=== PATIENT | male | born 2000 | race Caucasian/White ===

== ENCOUNTER 2021-05-20 15:56 | Observation (INO) | payer SELFPAY ==
[~2021-05-20] VITALS: Ht 188 cm; Wt 68.0 kg
[2021-05-20] MEDS ORDERED: ONDANSETRON 4 MG/2 ML (SDV) Z0FRAN ONE (16:09)
[2021-05-20] MEDS ORDERED: LACTATED RINGERS 1,000 ML IV ONE (16:10)
[2021-05-20] MEDS ORDERED: fentaNYL INJ 100 MCG/2 ML AMP ONE (16:10)
[2021-05-20] MEDS: LACTATED RINGERS 1,000 ML IV SCH ×3 (16:12→21:31)
--- NOTE | 2021-05-20 16:13 | ED Abdominal Pain ---
General Chief Complaint: Abdominal/GI Problems Stated Complaint: ABD PAIN Source of Information: Patient Exam Limitations: No Limitations History of Present Illness Date Seen by Provider: May 20, 2021 Time Seen by Provider: 16:10 Initial Comments To ER with diffuse abdominal pain that started today around 1 PM. He works for [employer]. Lives in [place], pulled over on the way home and try to sleep in his car and then got out and sat in the ditch. Welfare check was called on him by a passerby. States that he takes no medications. Denies alcohol or drug use. Does not have a primary care provider. He has had several episodes of diarrhea this morning as well as vomiting. Timing/Duration: 4-6 Hours Severity/Quality: Moderate Radiation: No Radiation Activities at Onset: None Associated Symptoms: Nausea/Vomiting Allergies and Home Medications Allergies Coded Allergies: No Known Drug Allergies (Unverified , 05/20/21) Patient Home Medication List Home Medication List Reviewed: Yes Review of Systems Review of Systems Constitutional: see HPI EENTM: No Symptoms Reported Respiratory: No Symptoms Reported Cardiovascular: No Symptoms Reported Gastrointestinal: See HPI, Abdominal Pain, Diarrhea, Nausea, Vomiting Genitourinary: No Symptoms Reported Musculoskeletal: no symptoms reported Skin: no symptoms reported Psychiatric/Neurological: No Symptoms Reported Endocrine: No Symptoms Reported Hematologic/Lymphatic: No Symptoms Reported Past Uvhnkbs-Hpirvl-Yiwvau Hx Patient Social History Tobacco Use?: No Use of E-Cig and/or Vaping dev: No Substance use?: No Alcohol Use?: No Immunizations Up To Date First/Initial COVID19 Vaccinat: none Second COVID19 Vaccination Thomas: none Third COVID19 Vaccination Date: none COVID19 Vaccine High School Coordinator: none Physical Exam Vital Signs Vital Signs - First Documented 05/20/21 15:56 Temp 36.8 Pulse 87 Resp 20 B/P (MAP) 116/70 (85) Pulse Ox 99 O2 Delivery Room Air Capillary Refill : Height/Weight/BMI Height: '" Weight: lbs. oz. kg; BMI Method: General Appearance: thin, other (Very anxious appearing, shaking. Drinking water excessively despite our request that he not do that.) HEENT: PERRL/EOMI, normal ENT inspection Neck: non-tender, full range of motion Respiratory: normal breath sounds, no respiratory distress, no accessory muscle use Gastrointestinal: normal bowel sounds, soft, tenderness Progress/Results/Core Measures Results/Orders Lab Results Laboratory Tests Test 05/20/21 16:08 05/20/21 18:20 Range/Units White Blood Count 21.2 H 4.3-11.0 10^3/uL Red Blood Count 5.42 4.30-5.52 10^6/uL Hemoglobin 17.4 13.3-17.7 g/dL Hematocrit 50 40-54 % Mean Corpuscular Volume 92 80-99 fL Mean Corpuscular Hemoglobin 32 25-34 pg Mean Corpuscular Hemoglobin Concent 35 32-36 g/dL Red Cell Distribution Width 11.5 10.0-14.5 % Platelet Count 267 130-400 10^3/uL Mean Platelet Volume 9.8 9.0-12.2 fL Immature Granulocyte % (Auto) 1 % Neutrophils (%) (Auto) 87 H 42-75 % Lymphocytes (%) (Auto) 4 L 12-44 % Monocytes (%) (Auto) 8 0-12 % Eosinophils (%) (Auto) 0 0-10 % Basophils (%) (Auto) 0 0-10 % Neutrophils # (Auto) 18.5 H 1.8-7.8 10^3/uL Lymphocytes # (Auto) 0.8 L 1.0-4.0 10^3/uL Monocytes # (Auto) 1.7 H 0.0-1.0 10^3/uL Eosinophils # (Auto) 0.1 0.0-0.3 10^3/uL Basophils # (Auto) 0.1 0.0-0.1 10^3/uL Immature Granulocyte # (Auto) 0.1 0.0-0.1 10^3/uL Neutrophils % (Manual) 86 % Lymphocytes % (Manual) 3 % Monocytes % (Manual) 11 % Blood Morphology Comment NORMAL Sodium Level 138 135-145 MMOL/L Potassium Level 4.8 3.6-5.0 MMOL/L Chloride Level 104 98-107 MMOL/L Carbon Dioxide Level 21 21-32 MMOL/L Anion Gap 13 5-14 MMOL/L Blood Urea Nitrogen 17 7-18 MG/DL Creatinine 1.03 0.60-1.30 MG/DL Estimat Glomerular Filtration Rate 106 BUN/Creatinine Ratio 17 Glucose Level 141 H 70-105 MG/DL Calcium Level 10.5 H 8.5-10.1 MG/DL Corrected Calcium 8.5-10.1 MG/DL Total Bilirubin 1.2 H 0.1-1.0 MG/DL Aspartate Amino Transf (AST/SGOT) 52 H 5-34 U/L Alanine Aminotransferase (ALT/SGPT) 42 0-55 U/L Alkaline Phosphatase 84 40-136 U/L Total Protein 8.5 H 6.4-8.2 GM/DL Albumin 4.9 H 3.2-4.5 GM/DL Lipase 55 8-78 U/L Serum Alcohol < 10 <10 MG/DL Urine Color YELLOW Urine Clarity CLOUDY Urine pH 6.0 5-9 Urine Specific [place] 1.020 1.016-1.022 Urine Protein 1+ H NEGATIVE Urine Glucose (UA) NEGATIVE NEGATIVE Urine Ketones NEGATIVE NEGATIVE Urine Nitrite POSITIVE H NEGATIVE Urine Bilirubin NEGATIVE NEGATIVE Urine Urobilinogen 1.0 < = 1.0 MG/DL Urine Leukocyte Esterase 2+ H NEGATIVE Urine RBC (Auto) 3+ H NEGATIVE Urine RBC 25-50 H /HPF Urine WBC >100 H /HPF Urine Crystals NONE /LPF Urine Bacteria MODERATE H /HPF Urine Casts NONE /LPF Urine Mucus NEGATIVE /LPF Urine Culture Indicated YES Urine Opiates Screen NEGATIVE NEGATIVE Urine Oxycodone Screen NEGATIVE NEGATIVE Urine Methadone Screen NEGATIVE NEGATIVE Urine Propoxyphene Screen NEGATIVE NEGATIVE Urine Barbiturates Screen NEGATIVE NEGATIVE Ur Tricyclic Antidepressants Screen NEGATIVE NEGATIVE Urine Phencyclidine Screen NEGATIVE NEGATIVE Urine Amphetamines Screen NEGATIVE NEGATIVE Urine Methamphetamines Screen NEGATIVE NEGATIVE Urine Benzodiazepines Screen NEGATIVE NEGATIVE Urine Cocaine Screen NEGATIVE NEGATIVE Urine Cannabinoids Screen NEGATIVE NEGATIVE My Orders Orders - STEVEN HOWARD APRN Ua Culture If Indicated (05/20/21 15:59) Drug Screen Stat (Urine) (05/20/21 15:59) Cbc With Automated Diff (05/20/21 15:59) Comprehensive Metabolic Panel (05/20/21 15:59) Ed Iv/Invasive Line Start (05/20/21 15:59) Lipase (05/20/21 15:59) Alcohol (05/20/21 15:59) Lactated Ringers (Lr 1000 Ml Iv Solution (05/20/21 16:15) Fentanyl Inj (Sublimaze Injection) (05/20/21 16:15) Ondansetron Injection (Zofran Injectio (05/20/21 16:15) Ondansetron Injection (Zofran Injectio (05/20/21 16:09) Lactated Ringers (Lr 1000 Ml Iv Solution (05/20/21 16:10) Fentanyl Inj (Sublimaze Injection) (05/20/21 16:10) Lorazepam Injection (Ativan Injection) (05/20/21 16:15) Manual Differential (05/20/21 16:08) Ct Abdomen/Pelvis W (05/20/21 16:25) Iohexol Injection (Omnipaque 350 Mg/Ml 1 (05/20/21 16:45) Received Contrast (Hold Metformin- Contr (05/20/21 16:45) Ns (Ivpb) (Sodium Chloride 0.9% Ivpb Bag (05/20/21 16:45) Lactated Ringers (Lr 1000 Ml Iv Solution (05/20/21 17:15) Promethazine Injection (Phenergan Injec (05/20/21 18:30) Urine Culture (05/20/21 18:20) Ceftriaxone 1 Gm Pre-Mix (Rocephin 1 Gm (05/20/21 19:15) Blood Culture (05/20/21 19:08) Lactic Acid Analyzer (05/20/21 19:08) Medications Given in ED Current Medications Medications Dose Ordered Sig/Nusrat Route Start Time Stop Time Status Last Admin Dose Admin Fentanyl Citrate 50 mcg ONCE ONCE IVP 05/20/21 16:15 05/20/21 16:16 DC 05/20/21 16:12 50 MCG Iohexol 100 ml ONCE ONCE IV 05/20/21 16:45 05/20/21 16:46 DC 05/20/21 16:41 100 ML Ondansetron HCl 8 mg ONCE ONCE IVP 05/20/21 16:15 05/20/21 16:16 DC 05/20/21 16:12 8 MG Promethazine HCl 12.5 mg ONCE ONCE IVP 05/20/21 18:30 05/20/21 18:31 DC 05/20/21 18:39 12.5 MG Sodium Chloride 100 ml ONCE ONCE IV 05/20/21 16:45 05/20/21 16:46 DC 05/20/21 16:42 80 ML Vital Signs/I&O 05/20/21 15:56 Temp 36.8 Pulse 87 Resp 20 B/P (MAP) 116/70 (85) Pulse Ox 99 O2 Delivery Room Air Departure Communication (Admissions) NAME: KYLE BLACK [facility] REC#: [id number] PT STATUS: REG ER : 2000 PHYSICIAN: STEVEN HOWARD APRN ADMIT DATE: 05/20/21/ER Draft Date of Exam:05/20/21 CT ABDOMEN/PELVIS W EXAMINATION: CT abdomen and pelvis with intravenous contrast. TECHNIQUE: Multiple contiguous axial images were obtained through the abdomen and pelvis after the uneventful administration of intravenous contrast. All CT scans use one or more of the following dose optimizing techniques: automated exposure control, MA and/or KvP adjustment based on patient size and exam type or iterative reconstruction. HISTORY: abd pain COMPARISON: None available. FINDINGS: Lung bases: The lung bases are clear. Solid organs: The liver is normal without focal lesion. The gallbladder is normal. There is no biliary ductal dilation. Pancreas is normal. Spleen is normal. Adrenal glands are normal. The kidneys are normal without hydronephrosis. Bowel: The stomach and small bowel are normal without obstruction. The colon and appendix are normal. Fluid is seen within the colon which can be seen with diarrheal state. Peritoneum: There is no intraperitoneal free fluid or free air. No suspicious lymphadenopathy. Vasculature: Normal without aneurysm. Musculoskeletal: No suspicious osseous lesion or compression fracture. Pelvis: The prostate gland is normal. The urinary bladder is normal. IMPRESSION: 1. No acute abnormality in the abdomen or pelvis. 2. Fluid is seen throughout the colon which can be seen with diarrheal state. Dictated on workstation # [id number] Dict: 05/20/21 1654 Trans: 05/20/21 1700 [id number] [id number] Interpreted by: MARY JANE DYER DO Electronically signed by: Impression Primary Impression: Acute gastroenteritis Additional Impression: Urinary tract infection Disposition: HOME, SELF-CARE Condition: Stable Admissions Decision to Admit Reason: Admit from ER (General) Decision to Admit/Date: May 20, 2021 Time/Decision to Admit Time: 19:17 Departure-Patient Inst. Referrals: UNKNOWN (PCP/Family) Primary Care Physician STEVEN HOWARD APRN May 20, 2021 16:13
[2021-05-20] MEDS ORDERED: ONDANSETRON 4 MG/2 ML (SDV) Z0FRAN IVP ONE (16:15)
[2021-05-20] MEDS ORDERED: LORazepam INJ 2 MG/ML (ATIVAN) VIAL IVP ONE (16:15)
[2021-05-20] MEDS ORDERED: fentaNYL INJ 100 MCG/2 ML AMP IVP ONE (16:15)
[2021-05-20 16:18] LABS: BASOPHILS # (AUTO) 0.1 10^3/uL (0.0-0.1); BASOPHILS % (AUTO) 0 % (0-10); EOSINOPHILS # (AUTO) 0.1 10^3/uL (0.0-0.3); EOSINOPHILS % (AUTO) 0 % (0-10); HEMATOCRIT 50 % (40-54); HEMOGLOBIN 17.4 g/dL (13.3-17.7); LYMPHOCYTES # (AUTO) 0.8 10^3/uL (1.0-4.0); LYMPHOCYTES % (AUTO) 4 % (12-44); MEAN CORPUSCULAR HEMOGLOBIN 32 pg (25-34); MEAN CORPUSCULAR HGB CONC 35 g/dL (32-36); MEAN CORPUSCULAR VOLUME 92 fL (80-99); MEAN PLATELET VOLUME 9.8 fL (9.0-12.2); MONOCYTES # (AUTO) 1.7 10^3/uL (0.0-1.0); MONOCYTES % (AUTO) 8 % (0-12); NEUTROPHILS # (AUTO) 18.5 10^3/uL (1.8-7.8); NEUTROPHILS % (AUTO) 87 % (42-75); PLATELET COUNT 267 10^3/uL (130-400); WHITE BLOOD COUNT 21.2 10^3/uL (4.3-11.0)
[2021-05-20 16:29] LABS: ALBUMIN 4.9 GM/DL (3.2-4.5); CHLORIDE 104 MMOL/L (98-107); POTASSIUM 4.8 MMOL/L (3.6-5.0); SODIUM 138 MMOL/L (135-145)
[2021-05-20 16:30] LABS: CALCIUM 10.5 MG/DL (8.5-10.1)
[2021-05-20 16:32] LABS: GLUCOSE 141 MG/DL (70-105); TOTAL PROTEIN 8.5 GM/DL (6.4-8.2)
[2021-05-20 16:33] LABS: BILIRUBIN,TOTAL 1.2 MG/DL (0.1-1.0); CARBON DIOXIDE 21 MMOL/L (21-32)
[2021-05-20 16:35] LABS: ALKALINE PHOSPHATASE 84 U/L (40-136)
[2021-05-20 16:36] LABS: CREATININE SERUM 1.03 MG/DL (0.60-1.30); GFR ESTIMATED 106
[2021-05-20 16:37] LABS: BUN/CREATININE RATIO 17
[2021-05-20 16:38] LABS: ALANINE AMINOTRANSFERASE 42 U/L (0-55)
[2021-05-20 16:39] LABS: LIPASE 55 U/L (8-78)
[2021-05-20] MEDS ORDERED: NS 100 ML (IVPB) BAG IV ONE (16:45)
[2021-05-20] MEDS ORDERED: IOHEXOL 350 MG/ML 100 ML (OMNIPAQUE 350) VIAL IV ONE (16:45)
[2021-05-20] MEDS ORDERED: HOLD METFORMIN - RECEIVED CONTRAST 20 ML VIAL IV SCH (16:45)
--- NOTE | 2021-05-20 17:01 | Diagnostic Imaging Report ---
EXAMINATION: CT abdomen and pelvis with intravenous contrast. TECHNIQUE: Multiple contiguous axial images were obtained through the abdomen and pelvis after the uneventful administration of intravenous contrast. All CT scans use one or more of the following dose optimizing techniques: automated exposure control, MA and/or KvP adjustment based on patient size and exam type or iterative reconstruction. HISTORY: abd pain COMPARISON: None available. FINDINGS: Lung bases: The lung bases are clear. Solid organs: The liver is normal without focal lesion. The gallbladder is normal. There is no biliary ductal dilation. Pancreas is normal. Spleen is normal. Adrenal glands are normal. The kidneys are normal without hydronephrosis. Bowel: The stomach and small bowel are normal without obstruction. The colon and appendix are normal. Fluid is seen within the colon which can be seen with diarrheal state. Peritoneum: There is no intraperitoneal free fluid or free air. No suspicious lymphadenopathy. Vasculature: Normal without aneurysm. Musculoskeletal: No suspicious osseous lesion or compression fracture. Pelvis: The prostate gland is normal. The urinary bladder is normal. IMPRESSION: 1. No acute abnormality in the abdomen or pelvis. 2. Fluid is seen throughout the colon which can be seen with diarrheal state. Dictated by: Dictated on workstation # [id number]
[2021-05-20] MEDS ORDERED: LACTATED RINGERS 1,000 ML IV SCH (17:15)
[2021-05-20 17:17] LABS: LYMPHOCYTES % (MANUAL) 3 %; MONOCYTES % (MANUAL) 11 %; NEUTROPHILS % (MANUAL) 86 %; RBC MORPH NORMAL
[2021-05-20] MEDS ORDERED: PROMETHAZINE INJ 25 MG/ML (PHENERGAN) AMP IVP ONE (18:30)
[2021-05-20 18:34] LABS: BILIRUBIN,URINE NEGATIVE (NEGATIVE); CLARITY,URINE CLOUDY; COLOR,URINE YELLOW; GLUCOSE, URINE (UA) NEGATIVE (NEGATIVE); KETONES,URINE NEGATIVE (NEGATIVE); LEUKOCYTE ESTERASE ,URINE 2+ (NEGATIVE); NITRITE,URINE POSITIVE (NEGATIVE); PROTEIN,URINE 1+ (NEGATIVE)
[2021-05-20 19:02] LABS: RBC,URINE 25-50 /HPF; WBC,URINE >100 /HPF
[2021-05-20 19:03] LABS: AMPHETAMINE SCREEN, URINE NEGATIVE (NEGATIVE); BACTERIA,URINE MODERATE /HPF; BARBITURATE SCREEN URINE NEGATIVE (NEGATIVE); BENZODIAZEPINES SCREEN URINE NEGATIVE (NEGATIVE); CANNABINOID SCREEN, URINE NEGATIVE (NEGATIVE); COCAINE SCREEN URINE NEGATIVE (NEGATIVE); METHADONE STAT NEGATIVE (NEGATIVE); METHAMPHETAMINE SCREEN URINE S NEGATIVE (NEGATIVE); OPIATE SCREEN URINE NEGATIVE (NEGATIVE); OXYCODONE STAT NEGATIVE (NEGATIVE); PROPOXYPHENE STAT NEGATIVE (NEGATIVE); TRICYCLIC ANTIDEPRESSANTS SCRE NEGATIVE (NEGATIVE)
[2021-05-20] MEDS ORDERED: cefTRIAXone 1 GM PRE-MIX 50 ML IV ONE ×2 (19:15→19:30)
[2021-05-20] MEDS ORDERED: ACETAMINOPHEN 500 MG TAB (TYLENOL) PO PRN (20:45)
[2021-05-20 21:02] VITALS: BP 113/61
[2021-05-20] MEDS ORDERED: ACETAMINOPHEN 500 MG TAB (TYLENOL) ONE (21:08)
[2021-05-20] MEDS ORDERED: PROMETHAZINE INJ 25 MG/ML (PHENERGAN) AMP IVP PRN (21:30)
[2021-05-20] MEDS ORDERED: ONDANSETRON 4 MG/2 ML (SDV) Z0FRAN IV PRN (21:30)
[2021-05-21] VITALS: BP 97/51
[2021-05-21 04:00] VITALS: BP 125/63
[2021-05-21] MEDS: LACTATED RINGERS 1,000 ML IV SCH ×2 (05:11→13:30)
[2021-05-21 05:46] LABS: BASOPHILS % (AUTO) 0 % (0-10); EOSINOPHILS # (AUTO) 0.1 10^3/uL (0.0-0.3); EOSINOPHILS % (AUTO) 1 % (0-10); HEMATOCRIT 45 % (40-54); HEMOGLOBIN 15.5 g/dL (13.3-17.7); LYMPHOCYTES # (AUTO) 0.8 10^3/uL (1.0-4.0); LYMPHOCYTES % (AUTO) 8 % (12-44); MEAN CORPUSCULAR HEMOGLOBIN 32 pg (25-34); MEAN CORPUSCULAR HGB CONC 34 g/dL (32-36); MEAN CORPUSCULAR VOLUME 92 fL (80-99); MONOCYTES # (AUTO) 0.7 10^3/uL (0.0-1.0); MONOCYTES % (AUTO) 7 % (0-12); NEUTROPHILS # (AUTO) 8.7 10^3/uL (1.8-7.8); NEUTROPHILS % (AUTO) 84 % (42-75); PLATELET COUNT 217 10^3/uL (130-400); WHITE BLOOD COUNT 10.3 10^3/uL (4.3-11.0)
[2021-05-21 05:59] LABS: POTASSIUM 4.2 MMOL/L (3.6-5.0)
[2021-05-21 06:00] LABS: CALCIUM 9.4 MG/DL (8.5-10.1)
[2021-05-21 06:05] LABS: CREATININE SERUM 0.97 MG/DL (0.60-1.30)
[2021-05-21 07:57] VITALS: BP 115/75
--- NOTE | 2021-05-21 09:14 | History & Physical-Hospitalist ---
History of Present Illness HPI/Chief Complaint Patient is a 20-year-old male who presented to the emergency department due to nausea vomiting and diarrhea. He states his symptoms started yesterday while he was at work. He works here in [place] but was driving back to [place] when he decided to lay down and see if he could sleep it off. He continued to feel w orse and got out of his car and was sitting on the ground when a passerby or called the police to check on him. He was brought to the emergency room for evaluation. He was found to have a leukocytosis of 21 and a urinary tract infection. CT of his abdomen was consistent with a diarrheal illness. He was admitted for observation. This morning he states that he is feeling much better he was able to eat a clear liquid diet without any issues. He has had no further episodes of vomiting or diarrhea. He is requesting discharge home. Source: patient Date Seen 05/21/21 Time Seen by a Provider: 09:03 Attending Physician Haleigh Murguia MD PCP No,Local Physician Referring Physician Date of Admission May 20, 2021 at 19:11 Home Medications & Allergies Home Medications Reviewed patient Home Medication Reconciliation performed by pharmacy medication reconciliations industrial ecology technician and/or nursing. Patients Allergies have been reviewed. Allergies Allergies Coded Allergies No Known Drug Allergies (Unverified05/20/21) Past Xhhgtxd-Vxqtvd-Oqivsl Hx Patient Social History Employed/Student: employed Tobacco Use?: No Smoking Status: Never a Smoker Use of E-Cig and/or Vaping dev: No Substance use?: No Alcohol Use?: No Pt feels they are or have been: No Immunizations Up To Date First/Initial COVID19 Vaccinat: none Second COVID19 Vaccination Thomas: none Tetanus Booster (TDap): Less Than 5 Years Current Status Advance Directives: No Communicates: Verbally Primary Language: Citizen Of [place] Preferred Spoken Language: Citizen Of [place] Is interpretation needed?: No Implanted or Applied Medical D: None Family Medical History Reviewed Nursing Family Hx Heart Disease Review of Systems Constitutional: fever, weakness EENTM: no symptoms reported Respiratory: no symptoms reported Cardiovascular: no symptoms reported Gastrointestinal: diarrhea, nausea, vomiting Genitourinary: no symptoms reported Musculoskeletal: no symptoms reported Skin: no symptoms reported Psychiatric/Neurological: No Symptoms Reported Physical Exam Physical Exam Vital Signs Vital Signs - First Documented 05/20/21 15:56 Temp 36.8 Pulse 87 Resp 20 B/P (MAP) 116/70 (85) Pulse Ox 99 O2 Delivery Room Air Capillary Refill : Less Than 3 Seconds Height, Weight, BMI Height: '" Weight: lbs. oz. kg; 19.23 BMI Method: General Appearance: No Apparent Distress, Thin HEENT: PERRL/EOMI, Moist Mucous Membranes; No Scleral Icterus (L), No Scleral Icterus (R) Neck: Normal Inspection, Supple Respiratory: Lungs Clear, No Accessory Muscle Use, No Respiratory Distress Cardiovascular: Regular Rate, Rhythm, No Murmur Gastrointestinal: Normal Bowel Sounds, Non Tender, Soft Extremity: No Calf Tenderness, No Pedal Edema Neurologic/Psychiatric: Alert, Oriented x3 Skin: Normal Color, Warm/Dry Results Results/Procedures Labs Laboratory Tests 05/20/21 16:08 05/21/21 05:36 Patient resulted labs reviewed. Imaging: Reviewed Imaging Report Imaging [facility] [place] NAME: KYLE BLACK [facility] REC#: [id number] PT STATUS: REG ER : 2000 PHYSICIAN: STEVEN HOWARD APRN ADMIT DATE: 05/20/21/ER Signed Date of Exam:05/20/21 CT ABDOMEN/PELVIS W EXAMINATION: CT abdomen and pelvis with intravenous contrast. TECHNIQUE: Multiple contiguous axial images were obtained through the abdomen and pelvis after the uneventful administration of intravenous contrast. All CT scans use one or more of the following dose optimizing techniques: automated exposure control, MA and/or KvP adjustment based on patient size and exam type or iterative reconstruction. HISTORY: abd pain COMPARISON: None available. FINDINGS: Lung bases: The lung bases are clear. Solid organs: The liver is normal without focal lesion. The gallbladder is normal. There is no biliary ductal dilation. Pancreas is normal. Spleen is normal. Adrenal glands are normal. The kidneys are normal without hydronephrosis. Bowel: The stomach and small bowel are normal without obstruction. The colon and appendix are normal. Fluid is seen within the colon which can be seen with diarrheal state. Peritoneum: There is no intraperitoneal free fluid or free air. No suspicious lymphadenopathy. Vasculature: Normal without aneurysm. Musculoskeletal: No suspicious osseous lesion or compression fracture. Pelvis: The prostate gland is normal. The urinary bladder is normal. IMPRESSION: 1. No acute abnormality in the abdomen or pelvis. 2. Fluid is seen throughout the colon which can be seen with diarrheal state. Dictated by: Dictated on workstation # [id number] Dict: 05/20/21 1654 Trans: 05/20/21 1718 [id number] [id number] Interpreted by: MARY JANE DYER DO Electronically signed by: MARY JANE DYER DO 05/20/21 1718 Assessment/Plan Admission Diagnosis Gastroenteritis with dehydration Admission Status: Observation Assessment and Plan Gastroenteritis with dehydration Improved with IVF and antiemetics Advance diet If tolerates can DC home UTI UA consistent with UTI Currently on rocephin Will send oral RX to complete course HALEIGH MURGUIA MD May 21, 2021 09:13
[2021-05-21] MEDS ORDERED: CEPH500T PO (09:15)
[2021-05-21] MEDS ORDERED: ONDA4TAB11 PO (09:15)
--- NOTE | 2021-05-21 09:16 | Discharge Inst-Simple/Standard ---
Discharge Inst-Standard Patient Instructions/Follow Up Plan of Care/Instructions/FU: Gastroenteritis please continue take your medications as written. Please follow-up with your primary care doctor to follow-up this hospital stay. Activity as Tolerated: Yes Discharge Diet: Other Diet (start bland and advance as tolerated over the weekend) Return to The Hospital For: Abdominal pain, nausea, vomiting, diarrhea, if you are unable to keep any orals down, fever, if you feel you are getting worse. HALEIGH RENE MD May 21, 2021 09:16
[2021-05-21 11:25] VITALS: BP 109/67
[2021-05-21 14:29] VITALS: BP 109/67
[2021-05-21] MEDS ORDERED: cefTRIAXone 1 GM IV (PRE-MIX) 50 ML IV SCH (20:00)
== END 2021-05-21 14:31 | disposition home or self-care (01) ==
LOC: ER 15:57 → EDSEX 15:57 → UNDOADMOB 19:11 → 4TH 19:11
PROVIDERS: ADMIT Family Medicine; ATTEND Family Medicine
DX: K52.9 Noninfective gastroenteritis and colitis, unspecified (principal); E86.0 Dehydration; N39.0 Urinary tract infection, site not specified; Z79.899 Other long term (current) drug therapy
CPT/HCPCS: 74177; 80048; 80053; 80306; 81000; 83605; 83690; 85007; 85025; 85027; 87040; 87088; 96374; 96375; 96376; 99284; G0480; 36415; 80320; G0378